=== PATIENT | male | born 1985 ===

== ENCOUNTER → 2022-09-17 07:52 | Outpatient (CLI) | payer BC, SELFPAY ==
--- NOTE | ~2022-09-17 | US_ITS ---
US soft tissue abdomen 09/17/2022 08:29 Indication: Palpable abnormalities of the abdomen Procedure: High-resolution Limited ultrasound of the abdomen Comparison: No prior studies for comparison. 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 At the midline in the area o f palpable concern just superior to the umbilicus there is a focal defect in the abdominal wall muscu lature consistent with hernia, likely containing fat. No evidence for definite intrusion of bowel. Th e hernia defect measures approximately 6 mm. Impression: 1: Small supraumbilical hernia, likely containing fat. No evidence for definite bowel intrusion. 2: Hyperechoic mass located superficially in the left side of the abdomen in the area of palpable con cern, most likely a benign lipoma. Recommend follow-up ultrasound if clinical changes occur on physic al examination. Reviewed, dictated and finalized at location B. [facility] Impression: 1: Small supraumbilical hernia, likely containing fat. No evidence for definite bowel intrusion. 2: Hyperechoic mass located superficially in the left side of the abdomen in th e area of palpable concern, most likely a benign lipoma. Recommend follow-up ul trasound if clinical changes occur on physical examination.
== END ==
PROVIDERS: PCP Nurse Practitioner; Visit Provider Nurse Practitioner
DX: K43.9 Ventral hernia without obstruction or gangrene (principal); R22.2 Localized swelling, mass and lump, trunk
CPT/HCPCS: 76705